=== PATIENT | female | born 1965 | race Two or more races ===

== ENCOUNTER 2021-04-07 01:58 | Emergency (ER) | payer MEDICAID ==
[~2021-04-07] VITALS: Ht 157.5 cm; Wt 63.5 kg
[2021-04-07] MEDS ORDERED: amLODIPine BESYLATE 5 MG TAB PO ONE (04:15)
[2021-04-07 08:38] LABS: Basophils # (auto) 0.1 10 ^3/uL (0-0.2); Basophils % (auto) 0.9 % (0.0-2.0); Eosinophils # (auto) 0.1 10 ^3/uL (0-0.8); Eosinophils % (auto) 0.9 % (0.0-7.0); Hematocrit 37.8 % (36.0-46.0); Hemoglobin 12.9 g/dL (12.2-16.2); Lymphocytes % (auto) 24.3 % (10.0-50.0); Mean Corpuscular Hemoglobin 30.5 pg (28.0-32.0); Mean Corpuscular Hgb Conc. 34.1 g/dL (32.0-36.0); Mean Corpuscular Volume 89.2 fL (80.0-100.0); Monocytes # (auto) 0.5 10 ^3/uL (0-1.3); Monocytes % (auto) 5.8 % (0.0-12.0); Neutrophils # (auto) 5.6 10 ^3/uL (1.6-8.6); Neutrophils % (auto) 68.1 % (37.0-80.0); Nucleated Red Blood Cells % 0.1 %; Red Blood Cells 4.24 10^6/uL (4.0-5.20); Red Cell Distribution Width 13.1 % (11.8-14.3); White Blood Cell 8.2 10^3/uL (4.4-10.8)
[2021-04-07 08:46] LABS: Urine Bacteria NONE SEEN /hpf (None Seen); Urine WBC 8 /hpf (0 - 5)
[2021-04-07 08:57] LABS: Albumin 3.8 g/dL (3.4-5.0); Calcium 9.1 mg/dL (8.5-10.1); Potassium 3.9 mmol/L (3.5-5.1)
[2021-04-07 09:03] LABS: BUN/Creatinine Ratio 18.4; Bilirubin, Total 0.4 mg/dL (0.2-1.0); Total Protein 8.2 g/dL (6.4-8.2)
[2021-04-07 09:19] LABS: Urine Specific Gravity 1.015 (1.001-1.035)
[2021-04-07 09:20] LABS: Urine Blood 4+ /uL (Negative)
[2021-04-07 09:48] VITALS: BP 133/75
== END 2021-04-07 09:50 | disposition home or self-care (01) ==
LOC: ER 01:58
DX: R51.9 Headache, unspecified (principal); I16.0 Hypertensive urgency; I10 Essential (primary) hypertension
CPT/HCPCS: 36415; 70450; 80053; 81001; 84484; 85025